=== PATIENT | male | born 1965 | race African-American/Black ===

== ENCOUNTER 2018-11-30 18:48 | Emergency (ER) | payer OTHER, SELFPAY ==
[2018-11-30 19:16] LABS: #Basophils 0.2 thou/uL (0.0-0.2); #Eosinphils 0.1 thou/uL (0.0-0.7); #Lymphocytes 3.7 thou/uL (1.20-3.40); #Monocytes 0.7 thou/uL (0.11-0.59); #Neutrophils 4.5 thou/uL (1.40-6.50); %Eosinophils 1.6 % (0.0-10.0); %Lymphocytes 40.4 % (21.0-51.0); %Monocytes 7.7 % (0.0-10.0); %Neutrophils 48.3 % (42.0-75.0); Hemoglobin 11.7 g/dL (14.0-18.0); Mean Corpuscular HGB CONC 31.2 g/dL (32.0-36.0); Mean Corpuscular Hemoglobin 26.8 pg (27.0-31.0); Mean Corpuscular Volume 85.8 fL (78.0-98.0); Mean Platelet Volume 7.3 fL (7.4-10.4); Platelet Count 212 thou/uL (130-400); RBC Distribution Width 12.6 % (11.5-14.5); Red Blood Cell (RBC) Count 4.37 mill/uL (4.70-6.10); White Blood Cell (WBC) Count 9.3 thou/uL (4.8-10.8)
--- NOTE | 2018-11-30 19:22 | RAD ---
Chest 2 views HISTORY: Syncope. Dyspnea. FINDINGS: Cardiac silhouette and pulmonary vasculature are unremarkable. Mediastinum is midline. No c onfluent airspace consolidation, pneumothorax, or pleural fluid are apparent. IMPRESSION: No active cardiopulmonary abnormalities are demonstrated.
--- NOTE | 2018-11-30 19:25 | CT ---
CT head contrast HISTORY: Altered mental status. Syncope. FINDINGS: There is no evidence of acute intracranial hemorrhage or infarct. Ventricles appear normal in size, shape and position. There is no mass effect or shift of midline structures. Visualized paranasal sinuses remain well aerated. IMPRESSION: No acute intracranial abnormalities are demonstrated.
[2018-11-30 19:34] LABS: ALT (SGPT) 16 U/L (8-55); AST (SGOT) 19 U/L (5-34); Albumin 3.8 g/dL (3.5-5.0); Alkaline Phosphatase 52 U/L (40-150); Anion Gap 15 mmol/L (10-20); BUN (Urea Nitrogen) 48 mg/dL (8.4-25.7); Bilirubin, Total 0.3 mg/dL (0.2-1.2); Calc. Creatinine Clearance 0 mL/min (70-130); Calcium 9.3 mg/dL (7.8-10.44); Carbon Dioxide 22 mmol/L (22-29); Chloride 105 mmol/L (98-107); Estimated GFR-MDRD 34; Globulin 3.2 g/dL (2.4-3.5); Glucose 198 mg/dL (70-105); Potassium 4.9 mmol/L (3.5-5.1); Sodium 137 mmol/L (136-145)
== END 2018-11-30 20:03 | disposition home or self-care (01) ==
LOC: MADERS 18:48
DX: R55 Syncope and collapse (principal); N19 Unspecified kidney failure; I10 Essential (primary) hypertension; E11.9 Type 2 diabetes mellitus without complications; F17.210 Nicotine dependence, cigarettes, uncomplicated; Z79.899 Other long term (current) drug therapy; Z79.4 Long term (current) use of insulin
CPT/HCPCS: 36416; 70450; 71046; 80053; 84484; 85025; 93005

== ENCOUNTER 2018-12-02 11:32 | Outpatient (CLI) | payer OTHER ==
--- NOTE | 2018-12-02 11:58 | RAD ---
RIGHT KNEE FOUR VIEWS: History: Knee pain. FINDINGS: There are severe arthritic changes of the knee with marked tricompartment degenerative change. Small joint effusion is seen. No fractures. IMPRESSION: Marked tricompartment arthritic changes of the knee. POS: [facility]PC
== END 2018-12-02 11:33 | disposition home or self-care (01) ==
LOC: MADRAD 11:32
PROVIDERS: ATTEND Family Medicine
DX: M25.561 Pain in right knee (principal); M17.11 Unilateral primary osteoarthritis, right knee

== ENCOUNTER 2019-09-01 15:24 | Emergency (ER) | payer OTHER ==
[2019-09-01] MEDS ORDERED: metFORMIN 500 MG TAB ONE (15:49)
[2019-09-01] MEDS ORDERED: Amlodipine 5 MG TAB ONE (15:49)
== END 2019-09-01 16:30 | disposition home or self-care (01) ==
LOC: MADERS 15:24
DX: E11.65 Type 2 diabetes mellitus with hyperglycemia (principal); R03.0 Elevated blood-pressure reading, without diagnosis of hypertension; I10 Essential (primary) hypertension; F17.210 Nicotine dependence, cigarettes, uncomplicated; Z79.899 Other long term (current) drug therapy; Z79.4 Long term (current) use of insulin
CPT/HCPCS: 36416; 99283

== ENCOUNTER 2019-09-03 04:48 | Emergency (ER) | payer OTHER ==
[2019-09-03 05:37] LABS: #Basophils 0.1 thou/uL (0.0-0.2); #Eosinphils 0.1 thou/uL (0.0-0.7); #Lymphocytes 2.6 thou/uL (1.20-3.40); #Monocytes 0.6 thou/uL (0.11-0.59); #Neutrophils 4.8 thou/uL (1.40-6.50); %Eosinophils 1.7 % (0.0-10.0); %Lymphocytes 31.3 % (21.0-51.0); %Monocytes 7.2 % (0.0-10.0); %Neutrophils 58.8 % (42.0-75.0); Hemoglobin 12.8 g/dL (14.0-18.0); Mean Corpuscular HGB CONC 30.4 g/dL (32.0-36.0); Mean Corpuscular Hemoglobin 26.1 pg (27.0-31.0); Mean Corpuscular Volume 85.9 fL (78.0-98.0); Mean Platelet Volume 8.3 fL (7.4-10.4); Platelet Count 244 thou/uL (130-400); RBC Distribution Width 12.4 % (11.5-14.5); White Blood Cell (WBC) Count 8.2 thou/uL (4.8-10.8)
[2019-09-03 05:54] LABS: ALT (SGPT) 20 U/L (8-55); AST (SGOT) 21 U/L (5-34); Albumin 3.8 g/dL (3.5-5.0); Alkaline Phosphatase 54 U/L (40-110); Anion Gap 12 mmol/L (10-20); BUN (Urea Nitrogen) 27 mg/dL (8.4-25.7); Bilirubin, Total 0.9 mg/dL (0.2-1.2); CK (CPK) 164 U/L (30-200); Calc. Creatinine Clearance 0 mL/min (70-130); Calcium 9.3 mg/dL (7.8-10.44); Carbon Dioxide 27 mmol/L (22-29); Chloride 106 mmol/L (98-107); Estimated GFR-MDRD 53; Globulin 3.1 g/dL (2.4-3.5); Glucose 160 mg/dL (70-105); Potassium 4.3 mmol/L (3.5-5.1); Protein, Total 6.9 g/dL (6.0-8.3); Sodium 141 mmol/L (136-145)
--- NOTE | 2019-09-03 07:36 | RAD ---
EXAM: Single view of the chest HISTORY: Fall with chest pain COMPARISON: None FINDINGS: Single view of the chest shows an enlarged cardiomediastinal silhouette. There is no eviden ce of consolidation, mass, or pleural effusion. The bones are unremarkable. IMPRESSION: Cardiomegaly
--- NOTE | 2019-09-03 07:42 | CT ---
PRELIMINARY REPORT/[facility]/EMERGENCY AFTER HOURS PROCEDURE PROCEDURE: CT scan Cervical Spine without contrast. HISTORY: Fell out of bunk. TECHNIQUE: Axial images were performed without IV contrast with multiplanar reconstructions . COMPARISON: None . FINDINGS: No acute fracture or displacement. Some mild anterior spondylosis C4-C5 disc space. No disc space narrowing. Facets show normal alignment and spinous processes are unremarkable. Mild median atlantoaxial joint arthrosis. No significant soft tissue abnormality. IMPRESSION: No acute bony abnormality. Minimal cervical spondyloarthropathy. ELECTRONICALLY SIGNED BY: Jose Manuel Valdez MD Sep 03, 2019 6:46:07 AM PEDODONTIST This report is intended for review by the ordering physician only, in accordance of law. If you recei ve this report in error, please call [facility] at [phone]. FINAL REPORT CERVICAL SPINE WITH CORONAL AND SAGITTAL REFORMATIONS: FINDINGS/IMPRESSION: I agree with the preliminary report given by Dr. Jose Manuel Valdez of [facility]. Transcribed Date/Time: 09/03/2019 7:48 AM
--- NOTE | 2019-09-03 07:42 | CT ---
PRELIMINARY REPORT/[facility]/EMERGENCY AFTER HOURS PROCEDURE: PROCEDURE: CT Head without Contrast . HISTORY: Fall. TECHNIQUE: Axial images were performed without the administration of IV contrast with or without mult iplanar reformations . COMPARISON: None . FINDINGS: Brain shows no mass, hemorrhage, or acute stroke. Ventricles are normal size for patient's age. No acute skull or scalp abnormality. Clear visualized sinuses and mastoids . IMPRESSION: Normal CT scan of the brain. ELECTRONICALLY SIGNED BY: Jose Manuel Valdez MD Sep 03, 2019 6:47:29 AM MOBILE MANAGER FINAL REPORT CT OF THE BRAIN WITHOUT CONTRAST: FINDINGS/IMPRESSION: I agree with findings and impression given in preliminary report per [facility] physician. No e vidence of acute intracranial abnormality. POS: OFF
--- NOTE | 2019-09-03 07:44 | RAD ---
Exam: Single view of the pelvis HISTORY: Pelvic and hip pain after fall COMPARISON: None FINDINGS: A single view the pelvis shows no evidence of acute fracture or dislocation. No degenerativ e changes seen in either hip. IMPRESSION: No evidence of acute osseous abnormality.
== END 2019-09-03 07:10 ==
LOC: MADERS 04:48
DX: S13.9XXA Sprain of joints and ligaments of unspecified parts of neck, initial encounter (principal); J06.9 Acute upper respiratory infection, unspecified; E11.9 Type 2 diabetes mellitus without complications; I10 Essential (primary) hypertension; F17.210 Nicotine dependence, cigarettes, uncomplicated; Z79.4 Long term (current) use of insulin; Z79.899 Other long term (current) drug therapy; W06.XXXA Fall from bed, initial encounter
CPT/HCPCS: 70450; 71045; 72125; 72170; 80053; 82550; 85025